=== PATIENT | male | born 1970 | race Caucasian/White ===

== ENCOUNTER 2019-08-26 03:40 | Emergency (ER) | payer OTHER ==
[~2019-08-26] VITALS: Ht 195.6 cm; Wt 95.3 kg
--- NOTE | 2019-08-26 03:52 | NUR ---
patient came into ER cheif of complaint of irritation of throat, not able to swallow. patient stated he feels like "there is food stuck in my throat." patient stated he had steak 2 hours prior to coming in. patient is able to comunicate with medical staff. patient is a/o x4. patient shows no s/s of respiratory distress. no cyanotic symtpoms noticed. patient saturation at 100%
--- NOTE | 2019-08-26 03:54 | NUR ---
patient in his room talking on the phone. able to have productive cough.
[2019-08-26] MEDS ORDERED: GLUCAGON,HUMAN RECOMBINANT 1 MG VIAL IVP ONE (04:00)
[2019-08-26] MEDS ORDERED: GLUCAGON,HUMAN RECOMBINANT 1 MG VIAL ONE (04:02)
[2019-08-26] MEDS ORDERED: NITROGLYCERIN 4.9 GM SPRAY TL ONE ×2 (04:11→04:15)
--- NOTE | 2019-08-26 04:32 | NUR ---
Patient discharged to home in stable conditon. Written and verbal after care instructions given. Patient verbalizes understanding of instructions. patient self - ambulatory with steady gait, patient has no respiratory distres at this time. patient saturation 100%., patient VSS exit care package and personal belongings taken with the patient. swallow evaulation done prior to discharge. patient passed and MD aware.
[2019-08-26 04:35] VITALS: BP 129/72
== END 2019-08-26 04:36 | disposition home or self-care (01) ==
LOC: ER 03:41
DX: T18.128A Food in esophagus causing other injury, initial encounter (principal); X58.XXXA Exposure to other specified factors, initial encounter; Y93.89 Activity, other specified; Y92.89 Other specified places as the place of occurrence of the external cause; Y99.8 Other external cause status
CPT/HCPCS: 96374; 99283; J1610; A4663; J3535

== ENCOUNTER 2019-08-26 10:58 | Inpatient (IN) | payer OTHER ==
[~2019-08-26] VITALS: Ht 167.6 cm; Wt 94.3 kg
--- NOTE | 2019-08-26 11:04 | NUR ---
Patient is AOx4 & able to speak full sentences, c/o foreign body sensation to back of the throat, breath sounds:CTA bilaterally. Patient says he was seen here in our ER for same problem early this morning.
[2019-08-26] MEDS ORDERED: GLUCAGON,HUMAN RECOMBINANT 1 MG VIAL IVP ONE (11:45)
[2019-08-26] MEDS ORDERED: IV NORMAL SALINE 1000 ML BAG IV ONE (11:45)
[2019-08-26] MEDS ORDERED: ONDANSETRON 4 MG/2 ML VIAL IV ONE (11:45)
[2019-08-26] MEDS ORDERED: ONDANSETRON 4 MG/2 ML VIAL ONE (11:54)
[2019-08-26] MEDS ORDERED: GLUCAGON,HUMAN RECOMBINANT 1 MG VIAL ONE (11:57)
--- NOTE | 2019-08-26 12:12 | NUR ---
Intermittent coughing heard from the patient with small emesis post-tussive.
--- NOTE | 2019-08-26 12:32 | NUR ---
JUSTINO HURLEY TALKING TO DR. FOSTER FOR GI/SURGORY CONSULT.
--- NOTE | 2019-08-26 12:41 | NUR ---
Patient is resting comfortably on gurney with high means's position
[2019-08-26] MEDS ORDERED: IV NS 1000 ML 1,000 ML IV PRN (12:44)
[2019-08-26] MEDS ORDERED: ONDANSETRON 4 MG/2 ML VIAL IV PRN (12:45)
[2019-08-26] MEDS ORDERED: MAGNESIUM HYDROXIDE 30 ML LIQUID UDC PO PRN (12:45)
[2019-08-26] MEDS ORDERED: Z GUARD REMEDY PASTE 57 GM TUBE TOP PRN (12:45)
[2019-08-26] MEDS ORDERED: MORPHINE SULFATE 2 MG/1 ML DISP.SYRIN IV PRN (12:45)
[2019-08-26] MEDS ORDERED: ACETAMINOPHEN 325 MG TABLET PO PRN (12:45)
[2019-08-26 13:33] VITALS: BP 147/87
[2019-08-26 15:27] VITALS: BP 145/86
[2019-08-26 17:20] LABS: BASOPHILS % (AUTO) 0.3 % (0.0-2.0); EOSINOPHILS % (AUTO) 0.3 % (0.0-7.0); HEMATOCRIT 37.8 % (36.7-47.1); HEMOGLOBIN 11.7 g/dL (12.5-16.3); LYMPHOCYTES # (AUTO) 2.3 K/uL (20.0-40.0); LYMPHOCYTES % (AUTO) 15.9 % (20.5-51.5); MEAN CORPUSCULAR HEMOGLOBIN 20.5 uug (23.8-33.4); MEAN CORPUSCULAR HGB CONC 31 g/dL (32.5-36.3); MEAN CORPUSCULAR VOLUME 66.5 fL (73.0-96.2); MONOCYTES # (AUTO) 0.6 K/uL (2.0-10.0); MONOCYTES % (AUTO) 4.4 % (0.0-11.0); NEUTROPHILS # (AUTO) 11.7 K/uL (1.8-8.9); NEUTROPHILS % (AUTO) 79.1 % (38.5-71.5); PLATELET COUNT (AUTO) 186 K/uL (152-348); RED BLOOD CELL COUNT(AUTO) 5.68 MIL/uL (4.06-5.63); WHITE BLOOD COUNT (AUTO) 14.7 K/uL (3.6-10.2)
[2019-08-26 17:22] LABS: *BILIRUBIN,URIN NEGATIVE (NEGATIVE); *BLOOD, URINE NEGATIVE (NEGATIVE); *CLARITY,URINE CLEAR (CLEAR); *COLOR,URINE YELLOW (YELLOW); *KETONES,URINE NEGATIVE (NEGATIVE); *UROBILINOGEN,URINE 0.2 E.U./dl (NORMAL); LEUKOCYTE ESTERASE ,URINE NEGATIVE (NEGATIVE); NITRITE, URINE NEGATIVE (NEGATIVE); PH,URINE 5.5 (5.0-8.0); UGLUCOSE NEGATIVE (NEGATIVE)
[2019-08-26 17:46] LABS: LYMPHOCYTES % (MANUAL) 17 % (20-40); MONOCYTES % (MANUAL) 2 % (2-10); NEUTROPHILS % (MANUAL) 81 % (42-75)
--- NOTE | 2019-08-26 18:54 | NUR ---
Patient is AOx4 & able to speak full sentences on admission,, c/o foreign body sensation to back of the throat, breath sounds:CTA bilaterally. Patient is at the surgery right now
[2019-08-26 19:01] VITALS: BP 116/72
[2019-08-26] MEDS: NICOTINE 14 MG/24HR PATCH TD SCH (19:01)
[2019-08-27 05:01] VITALS: BP 109/66
[2019-08-27 06:38] LABS: BASOPHILS % (AUTO) 0.4 % (0.0-2.0); EOSINOPHILS # (AUTO) 0.3 K/uL (0.0-0.7); EOSINOPHILS % (AUTO) 3.5 % (0.0-7.0); HEMATOCRIT 35.1 % (36.7-47.1); HEMOGLOBIN 11.1 g/dL (12.5-16.3); LYMPHOCYTES # (AUTO) 2.1 K/uL (20.0-40.0); LYMPHOCYTES % (AUTO) 21.5 % (20.5-51.5); MEAN CORPUSCULAR HEMOGLOBIN 20.8 uug (23.8-33.4); MEAN CORPUSCULAR HGB CONC 32 g/dL (32.5-36.3); MEAN CORPUSCULAR VOLUME 65.6 fL (73.0-96.2); MONOCYTES # (AUTO) 0.8 K/uL (2.0-10.0); MONOCYTES % (AUTO) 8.5 % (0.0-11.0); NEUTROPHILS # (AUTO) 6.5 K/uL (1.8-8.9); NEUTROPHILS % (AUTO) 66.1 % (38.5-71.5); PLATELET COUNT (AUTO) 166 K/uL (152-348); RED BLOOD CELL COUNT(AUTO) 5.35 MIL/uL (4.06-5.63); WHITE BLOOD COUNT (AUTO) 9.9 K/uL (3.6-10.2)
[2019-08-27 06:48] LABS: CREATININE 0.9 mg/dL (0.6-1.3); PHOSPHOROUS 3.3 mg/dL (2.5-4.9); POTASSIUM 4.1 mmol/L (3.5-5.1)
--- NOTE | 2019-08-27 07:35 | NUR ---
RECEIVED PATIENT IN BED WATCHING TV WITH NO S/S OF ACUTE DISTRESS NOTED AT THIS TIME. NO C/O PAIN AT THIS TIME. NO SOB NOTED. SAFETY AND COMFORT PROVIDED. CALL LIGHT WITHIN REACHED. WILL CONTINUE TO MONITOR.
[2019-08-27] MEDS: NICOTINE 14 MG/24HR PATCH TD SCH (08:47)
[2019-08-27] MEDS ORDERED: PANTOPRAZOLE SODIUM 40 MG VIAL IV SCH (09:00)
[2019-08-27] MEDS ORDERED: PROPOFOL 200 MG/20 ML BOTTLE IV ONE (09:44)
[2019-08-27] MEDS ORDERED: IV NORMAL SALINE 1000 ML BAG IV ONE (09:44)
[2019-08-27] MEDS ORDERED: LIDOCAINE HCL-MPF 1% 5 ML VIAL IJ ONE (09:44)
[2019-08-27] MEDS ORDERED: SEVOFLURANE 250 ML BOTTLE IH ONE (09:44)
[2019-08-27] MEDS ORDERED: GLYCOPYRROLATE 0.2 MG/ML VIAL IJ ONE (09:44)
--- NOTE | 2019-08-27 09:45 | NUR ---
Patient discharge to home via private car, discharge instruction given and verbalized understanding, no c/o pain no s/s of acute distress noted at this time. IV removed. belongings accounted for and signed. all needs attended, question and concerns addressed.
== END 2019-08-27 09:45 | disposition home or self-care (01) | DRG 395 ==
LOC: ER 10:58 → MEDSURG3 12:51
PROVIDERS: ADMIT Internal Medicine; ATTEND Internal Medicine
PROC: 0DC58ZZ Extirpation of Matter from Esophagus, Via Natural or Artificial Opening Endoscopic (ICD-10-PCS; principal; 2019-08-26)
PROC: 0DB98ZX Excision of Duodenum, Via Natural or Artificial Opening Endoscopic, Diagnostic (ICD-10-PCS; principal; 2019-08-26)
PROC: 0DB48ZX Excision of Esophagogastric Junction, Via Natural or Artificial Opening Endoscopic, Diagnostic (ICD-10-PCS; principal; 2019-08-26)
DX: T18.128A Food in esophagus causing other injury, initial encounter (principal); X58.XXXA Exposure to other specified factors, initial encounter; Y93.89 Activity, other specified; Y99.8 Other external cause status; K29.80 Duodenitis without bleeding; K44.9 Diaphragmatic hernia without obstruction or gangrene; K22.8 Other specified diseases of esophagus; K22.2 Esophageal obstruction; K90.0 Celiac disease
CPT/HCPCS: 36415; 70030-TC; 70490; 83735; 84100; 85025; A4217; A4663; C9113; G0378; J1610; J2270; J2405; J3490; J7030